=== PATIENT | female | born 1985 | race Caucasian/White ===

== ENCOUNTER 2018-07-28 02:55 | Emergency (ER) | payer BC ==
[2018-07-28] MEDS ORDERED: Sodium Chloride 0.9% 1,000 ML ONE (03:10)
[2018-07-28] MEDS ORDERED: Ondansetron 4 MG/2 ML SDV IVPUSH ONE (03:10)
[2018-07-28] MEDS ORDERED: Ondansetron 4 MG/2 ML SDV ONE (03:10)
[2018-07-28] MEDS ORDERED: Sodium Chloride 0.9% 10 ML Syringe FLUSH PRN (03:18)
[2018-07-28] MEDS ORDERED: Sodium Chloride 0.9% 1,000 ML IV ONE (03:20)
[2018-07-28] MEDS ORDERED: Ketorolac 30 MG/ML SDV IVPUSH ONE (03:24)
--- NOTE | 2018-07-28 03:24 | EDM.PDOC ---
ED HPI GENERAL MEDICAL PROBLEM - General Chief Complaint: Genitourinary Problem Stated Complaint: Abdominal pain Time Seen by Provider: 07/28/18 03:10 Source of Information: Reports: Patient History Limitations: Reports: No Limitations - History of Present Illness INITIAL COMMENTS - FREE TEXT/NARRATIVE: 32 YO WF presents to ER complaining of lower abdominal pain with associated nausea/vomiting. Pt reports she began 2 days ago with dysuria with urinary frequency so she began to take pyridium without relief. Pt reports she began vomiting last night. Pt reports she woke this am with localizing pain to RLQ prompting ER visit. Pt denies any low back pain or fever/chills but states she has been sleeping most of the day yesterday due to her feeling badly. Pt reports she had her IUD removed 1 month ago and did have a menstrual period 3 weeks ago. Pt reports to being sexually active. Onset Date: 07/26/18 Duration: Day(s): (2) Location: Reports: Abdomen Quality: Reports: Sharp Severity: Moderate Improves with: Reports: None Worsens with: Reports: None Associated Symptoms: Reports: No Other Symptoms, Nausea/Vomiting Right Lower Abdomen Pain Score (Numeric/FACES): 9 - Related Data Allergies Allergy/AdvReac Type Severity Reaction Status Date / Time amoxicillin [Amoxicillin] Allergy Hives Verified 07/28/18 03:52 Penicillins Allergy Hives Verified 07/28/18 03:52 Sulfa (Sulfonamide Allergy Hives Verified 07/28/18 03:52 Antibiotics) sulfamethoxazole Allergy Hives Verified 07/28/18 03:52 [From Bactrim] trimethoprim [From Bactrim] Allergy Hives Verified 07/28/18 03:52 Home Meds: Home Meds Omeprazole 40 mg PO DAILY 09/08/13 [History] Cephalexin [Keflex] 500 mg PO Q6HR #40 capsule 07/28/18 [Rx] Escitalopram [Lexapro] 10 mg PO DAILY 07/28/18 [History] Lisinopril 20 mg PO DAILY 07/28/18 [History] Ondansetron [Zofran ODT] 4 mg PO Q6H PRN #6 tab.dis 07/28/18 [Rx] traMADol [Ultram] 50 mg PO Q6H PRN #10 tab 07/28/18 [Rx] Social & Family History - Living Situation & Occupation Living situation: Reports: , with Family Occupation: Employed ED ROS GENERAL - Review of Systems Review Of Systems: See Below Constitutional: Reports: Malaise HEENT: Reports: No Symptoms Respiratory: Reports: No Symptoms Cardiovascular: Reports: No Symptoms Endocrine: Reports: No Symptoms GI/Abdominal: Reports: Abdominal Pain, Nausea, Vomiting : Reports: Dysuria, Frequency, Urgency Musculoskeletal: Reports: No Symptoms Skin: Reports: No Symptoms Neurological: Reports: No Symptoms Psychiatric: Reports: No Symptoms Hematologic/Lymphatic: Reports: No Symptoms Immunologic: Reports: No Symptoms ED EXAM, RENAL/ - Physical Exam Exam: See Below Exam Limited By: No Limitations General Appearance: Alert, WD/WN, Mild Distress Head: Atraumatic, Normocephalic Neck: Normal Inspection, Supple, Non-Tender, Full Range of Motion Respiratory/Chest: No Respiratory Distress, Lungs Clear, Normal Breath Sounds, No Accessory Muscle Use, Chest Non-Tender Cardiovascular: Normal Peripheral Pulses, Regular Rate, Rhythm, No Edema, No Gallop, No JVD, No Murmur, No Rub GI/Abdominal: Normal Bowel Sounds, Soft, No Organomegaly, No Distention, No Abnormal Bruit, No Mass, Tender (suprapubic and RLQ pain) Back Exam: Normal Inspection, Full Range of Motion, NT Extremities: Normal Inspection, Normal Range of Motion, Non-Tender, Normal Capillary Refill, No Pedal Edema Neurological: Alert, Oriented, CN II-XII Intact, Normal Cognition, Normal Gait, Normal Reflexes, No Motor/Sensory Deficits Psychiatric: Normal Affect, Normal Mood Skin Exam: Warm, Dry, Intact, Normal Color, No Rash Lymphatic: No Adenopathy Course - Vital Signs Last Recorded V/S: Last Vital Signs Temp 36.6 C 07/28/18 03:00 Pulse 102 H 07/28/18 03:00 Resp 18 07/28/18 03:00 BP 170/107 H 07/28/18 03:00 Pulse Ox 94 L 07/28/18 03:00 - Orders/Labs/Meds Orders: Active Orders 24 hr Category Date Time Status Peripheral IV Care [RC] . DIRECTED Care 07/28/18 03:18 Active CULTURE URINE [RM] Stat Lab 07/28/18 03:56 Ordered Sodium Chloride 0.9% [Saline Flush] Med 07/28/18 03:18 Active 10 ml FLUSH Q8HR PRN Peripheral IV Insertion Adult [OM.PC] Routine Oth 07/28/18 03:18 Ordered Medication Orders Sodium Chloride (Saline Flush) 10 ml FLUSH Q8HR PRN PRN Reason: keep vein open Labs: Laboratory Tests 07/28/18 07/28/18 07/28/18 Range/Units 03:15 03:15 03:20 WBC 15.72 H (5.00-10.00) 10^3/uL RBC 4.79 (3.80-5.50) 10^6/uL Hgb 14.7 (12.0-16.0) g/dL Hct 43.0 (37.0-47.0) % MCV 89.8 (82.0-92.0) fL MCH 30.7 (27.0-31.0) pg MCHC 34.2 (32.0-36.0) g/dL RDW 12.5 (11.5-14.5) % Plt Count 311 (150-400) 10^3/uL MPV 9.4 (7.4-10.4) fL Immature Gran % (Auto) 0.4 (0.0-5.0) % Neut % (Auto) 70.0 (50.0-70.0) % Lymph % (Auto) 22.3 (20.0-40.0) % [place] % (Auto) 6.3 (2.0-8.0) % Eos % (Auto) 0.5 L (1.0-3.0) % Baso % (Auto) 0.5 (0.0-1.0) % Immature Gran # (Auto) 0.06 (0.00-0.50) 10^3/uL Neut # (Auto) 11.01 H (2.50-7.00) 10^3/uL Lymph # (Auto) 3.50 (1.00-4.00) 10^3/uL [place] # (Auto) 0.99 H (0.10-0.80) 10^3/uL Eos # (Auto) 0.08 L (0.10-0.30) 10^3/uL Baso # (Auto) 0.08 (0.00-0.10) 10^3/uL Sodium 137 (136-145) mmol/L Potassium 3.8 (3.3-5.3) mmol/L Chloride 99 (98-115) mmol/L Carbon Dioxide 26.9 (21.0-32.0) mmol/L Anion Gap 14.9 (5-15) mmol/L BUN 11 (6-25) mg/dL Creatinine 0.66 (0.51-1.17) mg/dL Est Cr Clr Drug Dosing 94.99 mL/min Estimated GFR (MDRD) > 60 mL/min Glucose 126 H (75 - 99) mg/dL Calcium 8.3 L (8.7-10.3) mg/dL Total Bilirubin 0.6 (0.2-1.0) mg/dL AST 18 (15-37) U/L ALT 28 (12-78) U/L Alkaline Phosphatase 85 (46-116) IU/L Total Protein 7.4 (6.4-8.2) g/dL Albumin 3.42 (3.00-4.80) g/dL Lipase 77 (73-393) U/L HCG, Qual Negative (NEGATIVE) Specimen Type Urinvoid Urine Color [place] H (YELLOW) Urine Appearance Cloudy H (CLEAR) Urine pH 5.0 (5.0-9.0) Ur Specific [place] 1.015 (1.005-1.030) Urine Protein >=300 H (NEGATIVE) mg/dL Urine Glucose (UA) 250 H (NEGATIVE) mg/dL Urine Ketones 15 H (NEGATIVE) mg/dL Urine Occult Blood Large H (NEGATIVE) Urine Nitrite Positive H (NEGATIVE) Urine Bilirubin Small H (NEGATIVE) Urine Urobilinogen 4.0 H (0.2-1.0) E.U./dL Ur Leukocyte Esterase Large H (NEGATIVE) Urine RBC >100 H (0-5) /HPF Urine WBC 50-75 H (0-5) /HPF Ur Epithelial Cells Occasional /LPF Urine Bacteria Few (NONE TO FEW) /HPF Meds: Medications Generic Name Dose Route Start Last Admin Trade Name Freq PRN Reason Stop Dose Admin Sodium Chloride 10 ml 07/28/18 03:18 Saline Flush FLUSH Q8HR PRN keep vein open Discontinued Medications Generic Name Dose Route Start Last Admin Trade Name Freq PRN Reason Stop Dose Admin Ceftriaxone Sodium 1 gm 07/28/18 03:59 Rocephin IVPUSH 07/28/18 04:00 ONETIME ONE Sodium Chloride Confirm 07/28/18 03:10 07/28/18 03:10 Normal Saline Administered 07/28/18 03:11 999 mls/hr Dose Administration 1,000 mls @ as directed .ROUTE .STK-MED ONE Ketorolac Tromethamine 30 mg 07/28/18 03:24 07/28/18 03:32 Toradol IVPUSH 07/28/18 03:25 30 mg ONETIME ONE Administration Ketorolac Tromethamine Confirm 07/28/18 03:25 Toradol Administered 07/28/18 03:26 Dose 30 mg .ROUTE .STK-MED ONE Ondansetron HCl Confirm 07/28/18 03:10 07/28/18 03:10 Zofran Administered 07/28/18 03:11 4 mg Dose Administration 4 mg .ROUTE .STK-MED ONE - Re-Assessments/Exams Free Text/Narrative Re-Assessment/Exam: 07/28/18 04:01 Pt reports she feels much better after toradol/zofran. Pt understands she needs to return to ER for intractable vomiting or worsening symptoms 07/28/18 04:06 Pt instructed to continue her lisinopril and monitor her BP due to elevated BP in ER Departure - Departure Time of Disposition: 04:02 Disposition: Home, Self-Care 01 Condition: Fair Clinical Impression: Pyelonephritis Hypertension Qualifiers: Hypertension type: unspecified Qualified Code(s): I10 - Essential (primary) hypertension - Discharge Information Prescriptions: Cephalexin [Keflex] 500 mg PO Q6HR #40 capsule Ondansetron [Zofran ODT] 4 mg PO Q6H PRN #6 tab.dis PRN Reason: Vomiting traMADol [Ultram] 50 mg PO Q6H PRN #10 tab PRN Reason: Pain Instructions: Pyelonephritis, Adult, Hypertension, [id number] Referrals: Francoise Briggs MD [Physician] - Forms: ED Department Discharge Additional Instructions: 1. discharge home 2. keflex 500mg PO Q6 x 10 days 3. follow up in clinic in 2 days for urine culture results 4. zofran 4mg ODT Q6 prn 5. ultram 50mg PO Q6 #10 PRN 6. return to ER for worsening symptoms - My Orders Last 24 Hours: My Active Orders 07/28/18 03:18 Peripheral IV Care [RC] . DIRECTED Sodium Chloride 0.9% [Saline Flush] 10 ml FLUSH Q8HR PRN Peripheral IV Insertion Adult [OM.PC] Routine 07/28/18 03:56 CULTURE URINE [RM] Stat - Assessment/Plan Last 24 Hours: My Active Orders 07/28/18 03:18 Peripheral IV Care [RC] . DIRECTED Sodium Chloride 0.9% [Saline Flush] 10 ml FLUSH Q8HR PRN Peripheral IV Insertion Adult [OM.PC] Routine 07/28/18 03:56 CULTURE URINE [RM] Stat Assessment:: 1. Urinary tract infection- early pyelonephritis Plan: 1. discharge home 2. keflex 500mg PO Q6 x 10 days 3. follow up in clinic in 2 days for urine culture results 4. zofran 4mg ODT Q6 prn 5. ultram 50mg PO Q6 #10 PRN 6. return to ER for worsening symptoms
[2018-07-28] MEDS ORDERED: Ketorolac 30 MG/ML SDV ONE (03:25)
[2018-07-28] MEDS ORDERED: cefTRIAXone 1 GM Vial IVPUSH ONE (03:59)
[2018-07-28 04:00] LABS: ANION GAP 14.9 mmol/L (5-15); CHLORIDE,CL 99 mmol/L (98-115); SODIUM,NA 137 mmol/L (136-145)
[2018-07-28] MEDS ORDERED: Ondansetron 4 MG Tab.DIS PO ONE (04:07)
== END 2018-07-28 04:20 | disposition home or self-care (01) ==
LOC: KA.ED 02:55
DX: N12 Tubulo-interstitial nephritis, not specified as acute or chronic (principal); I10 Essential (primary) hypertension; Z79.899 Other long term (current) drug therapy; Z88.2 Allergy status to sulfonamides; Z88.1 Allergy status to other antibiotic agents; Z88.0 Allergy status to penicillin
CPT/HCPCS: 36415; 80053; 81001; 83690; 84703; 85025; 87086; 87088; 87186; 96361; 96374; 96375; 99283-25; A9270-GY; J0696; J1885; J2405; J7030

== ENCOUNTER 2018-08-08 21:30 | Emergency (ER) | payer BC ==
[2018-08-08] MEDS ORDERED: Acetaminophen/oxyCODONE 325-5 MG Tab PO ONE ×2 (21:37→22:02)
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
--- NOTE | 2018-08-09 08:03 | CR ---
[id number] RAD/RAD Tibia Fibula Left EXAM: LEFT LEG 2 VIEWS INDICATION: Trauma. COMPARISON: None. DISCUSSION: Soft tissue swelling throughout the proximal to mid leg most significant along the anterior-medial portion. No radiopaque foreign body is identified. No fracture or dislocation. IMPRESSION: 1. Soft tissue swelling. No acute osseous abnormality. Dennis Chicas MD 08/09/18 0802 Thank you for allowing us to participate in the care of your patient.
== END 2018-08-08 22:45 | disposition home or self-care (01) ==
LOC: KA.ED 21:30
DX: S80.12XA Contusion of left lower leg, initial encounter (principal); I10 Essential (primary) hypertension; K21.9 Gastro-esophageal reflux disease without esophagitis; F41.9 Anxiety disorder, unspecified; F32.9 Major depressive disorder, single episode, unspecified; Z79.899 Other long term (current) drug therapy; Z88.2 Allergy status to sulfonamides; Z88.1 Allergy status to other antibiotic agents; Z88.0 Allergy status to penicillin; V86.56XA Driver of dirt bike or motor/cross bike injured in nontraffic accident, initial encounter
CPT/HCPCS: 73590-LT; 99283-25; A9270-GY

== ENCOUNTER 2020-10-22 04:00 | Emergency (ER) | payer BC ==
[2020-10-22] MEDS ORDERED: Phenazopyridine 100 MG Tab PO ONE ×2 (04:30→04:56)
--- NOTE | 2020-10-22 04:44 | EDM.PDOC ---
ED HPI GENERAL MEDICAL PROBLEM - General Chief Complaint: Genitourinary Problem Stated Complaint: urinary infection Time Seen by Provider: 10/22/20 04:31 Source of Information: Reports: Patient - History of Present Illness INITIAL COMMENTS - FREE TEXT/NARRATIVE: 34 YO WF PRESENTS TO ER COMPLAINING OF HEMATURIA WHICH BEGAN TONIGHT AROUND 3AM. PT REPORTS ASSOCIATED URINARY FREQUENCY AND URGENCY. PT DENIES NAUSEA/VOMITING, NO BACK/FLANK PAIN OR ABDOMINAL PAIN, NO FEVER/CHILLS. PT REPORTS HISTORY OF UTI/PYELONEPHRITIS IN THE REMOTE PAST. Onset: Today Location: Reports: Abdomen Severity: Mild Improves with: Reports: None Worsens with: Reports: None Associated Symptoms: Reports: No Other Symptoms. Denies: Fever/Chills, Malaise, Nausea/Vomiting, Weakness - Related Data Allergies Allergy/AdvReac Type Severity Reaction Status Date / Time amoxicillin [Amoxicillin] Allergy Hives Verified 11/11/19 14:29 Penicillins Allergy Hives Verified 11/11/19 14:29 Sulfa (Sulfonamide Allergy Hives Verified 11/11/19 14:29 Antibiotics) sulfamethoxazole Allergy Hives Verified 11/11/19 14:29 [From Bactrim] trimethoprim [From Bactrim] Allergy Hives Verified 11/11/19 14:29 Home Meds: Home Meds Escitalopram [Lexapro] 20 mg PO DAILY 07/28/18 [History] Lisinopril 20 mg PO DAILY 07/28/18 [History] Ciprofloxacin HCl [Cipro] 500 mg PO BID #14 tablet 10/22/20 [Rx] Phenazopyridine HCl [Pyridium] 200 mg PO TID #6 tablet 10/22/20 [Rx] Semaglutide [Ozempic] 1 mg SUBCUT WEEKLY 10/22/20 [History] Past Medical History - Past Health History Medical/Surgical History: Denies Medical/Surgical History Cardiovascular History: Reports: Hypertension Gastrointestinal History: Reports: GERD Genitourinary History: Reports: Pyelonephritis, UTI, Recurrent [employer]OMB[employer] History: Reports: Psychiatric History: Reports: Anxiety, Depression Endocrine/Metabolic History: Reports: Diabetes, Type II - Past Surgical History Female Surgical History: Reports: Other (See Below) Other Female Surgeries/Procedures: uterine ablation 01/2020 Musculoskeletal Surgical History: Reports: Carpal Tunnel Other Musculoskeletal Surgeries/Procedures:: October 2020 Social & Family History - Family History Family Medical History: No Pertinent Family History - Caffeine Use Caffeine Use: Reports: Coffee, Soda - Recreational Drug Use Recreational Drug Use: No - Living Situation & Occupation Living situation: Reports: , with Family Occupation: Employed ED ROS GENERAL - Review of Systems Review Of Systems: See Below Constitutional: Reports: No Symptoms HEENT: Reports: No Symptoms Respiratory: Reports: No Symptoms Cardiovascular: Reports: No Symptoms Endocrine: Reports: No Symptoms GI/Abdominal: Reports: No Symptoms : Reports: Frequency, Hematuria, Urgency Musculoskeletal: Reports: No Symptoms Skin: Reports: No Symptoms Neurological: Reports: No Symptoms Psychiatric: Reports: No Symptoms Hematologic/Lymphatic: Reports: No Symptoms Immunologic: Reports: No Symptoms ED EXAM, RENAL/ - Physical Exam Exam: See Below Exam Limited By: No Limitations General Appearance: Alert, WD/WN, No Apparent Distress Head: Atraumatic, Normocephalic Neck: Normal Inspection, Supple, Non-Tender, Full Range of Motion Respiratory/Chest: No Respiratory Distress, Lungs Clear, Normal Breath Sounds, No Accessory Muscle Use, Chest Non-Tender Cardiovascular: Normal Peripheral Pulses, Regular Rate, Rhythm, No Edema, No Gallop, No JVD, No Murmur, No Rub GI/Abdominal: Normal Bowel Sounds, Soft, Non-Tender, No Organomegaly, No Distention, No Abnormal Bruit, No Mass Back Exam: Normal Inspection, Full Range of Motion, NT Extremities: Normal Inspection, Normal Range of Motion, Non-Tender, Normal Capillary Refill, No Pedal Edema Neurological: Alert, Oriented, CN II-XII Intact, Normal Cognition, Normal Gait, Normal Reflexes, No Motor/Sensory Deficits Psychiatric: Normal Affect, Normal Mood Skin Exam: Warm, Dry, Intact, Normal Color, No Rash Course - Vital Signs Last Recorded V/S: Last Vital Signs Temp 97.0 F 10/22/20 04:42 Pulse 83 10/22/20 04:42 Resp 16 10/22/20 04:42 BP 156/100 H 10/22/20 04:42 Pulse Ox 98 10/22/20 04:42 - Orders/Labs/Meds Orders: Active Orders 24 hr Category Date Time Status CULTURE URINE [RM] Stat Lab 10/22/20 04:46 Ordered Ciprofloxacin [Ciprofloxacin HCl] Med 10/22/20 04:56 Once 500 mg PO ONETIME ONE Phenazopyridine [Pyridium] Med 10/22/20 04:56 Once 200 mg PO Q12H ONE Labs: Laboratory Tests 10/22/20 Range/Units 04:08 Specimen Type Urincc Urine Color Red H (YELLOW) Urine Appearance Cloudy H (CLEAR) Urine pH 5.5 (5.0-9.0) Ur Specific [place] 1.015 (1.005-1.030) Urine Protein >=300 H (NEGATIVE) mg/dL Urine Glucose (UA) Negative (NEGATIVE) mg/dL Urine Ketones 15 H (NEGATIVE) mg/dL Urine Occult Blood Large H (NEGATIVE) Urine Nitrite Negative (NEGATIVE) Urine Bilirubin Moderate H (NEGATIVE) Urine Urobilinogen 2.0 H (0.2-1.0) E.U./dL Ur Leukocyte Esterase Large H (NEGATIVE) Urine RBC >100 H (0-5) /HPF Urine WBC 10-20 H (0-5) /HPF Ur Epithelial Cells Few /LPF Amorphous Sediment Rare (0/HPF) /HPF Urine Bacteria Not seen (NONE TO FEW) /HPF Meds: Medications Discontinued Medications Generic Name Dose Route Start Last Admin Trade Name Freq PRN Reason Stop Dose Admin Ciprofloxacin 500 mg 10/22/20 04:47 10/22/20 04:53 Ciprofloxacin 500 Mg Tab PO 10/22/20 04:48 500 mg ONETIME ONE Administration Phenazopyridine HCl 200 mg 10/22/20 04:30 10/22/20 04:37 Phenazopyridine 100 Mg Tab PO 10/22/20 04:31 200 mg BID ONE Administration Departure - Departure Time of Disposition: 04:50 Disposition: Home, Self-Care 01 Condition: Good Clinical Impression: UTI, Urinary tract infectious disease - Discharge Information Prescriptions: Ciprofloxacin HCl [Cipro] 500 mg PO BID #14 tablet Phenazopyridine HCl [Pyridium] 200 mg PO TID #6 tablet Instructions: Urinary Tract Infection, Adult, [id number] Referrals: Francoise Briggs MD [Physician] - Forms: ED Department Discharge Additional Instructions: 1. DISCHARGE HOME 2. CIPRO 500MG BID X 7 DAYS 3. PYRIDIUM 200MG TID X 2 DAYS PRN PAIN 4. URINE FOR CULTURE 5. FOLLOW UP WITH PCP FOR FURTHER EVALUATION AND TREATMENT NEEDED 6. RETURN TO ER FOR WORSENING SYMPTOMS Sepsis Event Note (ED) - Focused Exam Vital Signs: Vital Signs Temp Pulse Resp BP Pulse Ox 10/22/20 04:42 97.0 F 83 16 156/100 H 98 - My Orders Last 24 Hours: My Active Orders 10/22/20 04:46 CULTURE URINE [RM] Stat 10/22/20 04:56 Ciprofloxacin [Ciprofloxacin HCl] 500 mg PO ONETIME ONE Phenazopyridine [Pyridium] 200 mg PO Q12H ONE - Assessment/Plan Last 24 Hours: My Active Orders 10/22/20 04:46 CULTURE URINE [RM] Stat 10/22/20 04:56 Ciprofloxacin [Ciprofloxacin HCl] 500 mg PO ONETIME ONE Phenazopyridine [Pyridium] 200 mg PO Q12H ONE Assessment:: 1. URINARY TRACT INFECTION WITH HEMATURIA Plan: 1. DISCHARGE HOME 2. CIPRO 500MG BID X 7 DAYS 3. PYRIDIUM 200MG TID X 2 DAYS PRN PAIN 4. URINE FOR CULTURE 5. FOLLOW UP WITH PCP FOR FURTHER EVALUATION AND TREATMENT NEEDED 6. RETURN TO ER FOR WORSENING SYMPTOMS
[2020-10-22] MEDS ORDERED: Ciprofloxacin 500 MG Tab PO ONE ×2 (04:47→04:56)
== END 2020-10-22 05:05 | disposition home or self-care (01) ==
LOC: KA.ED 04:00
DX: N39.0 Urinary tract infection, site not specified (principal); R31.9 Hematuria, unspecified; I10 Essential (primary) hypertension; E11.9 Type 2 diabetes mellitus without complications; Z88.0 Allergy status to penicillin; Z88.2 Allergy status to sulfonamides; Z88.1 Allergy status to other antibiotic agents; Z79.899 Other long term (current) drug therapy
CPT/HCPCS: 81001; 87086; 87088; 99283; A9270; 87186